=== PATIENT | male | born 1965 | race Caucasian/White ===

== ENCOUNTER 2022-06-13 09:40 | Emergency (ER) | payer BC ==
[~2022-06-13] VITALS: Ht 165.1 cm; Wt 86.4 kg
[2022-06-13 09:49] VITALS: BP 163/97
[2022-06-13] MEDS ORDERED: AMLO10TA55 PO (09:51)
[2022-06-13] MEDS ORDERED: LOSA-382 PO (09:51)
[2022-06-13] MEDS ORDERED: ATOR20TA65 PO (09:51)
[2022-06-13 09:56] LABS: COVID AG,FIA SOURCE NASAL SWAB
[2022-06-13 10:22] LABS: INFLUENZA TYPE A NEGATIVE FOR TYPE A (NEGATIVE); INFLUENZA TYPE B NEGATIVE FOR TYPE B (NEGATIVE)
[2022-06-13 10:24] LABS: RAPID GROUP A STREP NEGATIVE (NEGATIVE)
[2022-06-13] MEDS ORDERED: BENZ-70 PO (11:33)
== END 2022-06-13 11:48 | disposition home or self-care (01) ==
LOC: EMS 09:42
DX: U07.1 COVID-19 (principal); I10 Essential (primary) hypertension
CPT/HCPCS: 87430; 87804; 99283

== ENCOUNTER 2023-04-23 11:39 | Emergency (ER) | payer BC, OTHER ==
[~2023-04-23] VITALS: Ht 165.1 cm; Wt 86.4 kg
[~2023-04-23 11:39] MED LIST: AMLO10TA55 PO; ATOR20TA65 PO; BENZ-227 PO; LOSA-382 PO
[2023-04-23 11:41] VITALS: TEMP 98.4
[2023-04-23 12:16] VITALS: BP 140/94; PULSE 86; RESP 16
[2023-04-24 08:07] LABS: HEPATITIS C AB (EIA) Non Reactive (Non Reactive)
== END 2023-04-23 12:26 | disposition home or self-care (01) ==
LOC: EMS 11:43
DX: S69.91XA Unspecified injury of right wrist, hand and finger(s), initial encounter (principal); I10 Essential (primary) hypertension; W46.1XXA Contact with contaminated hypodermic needle, initial encounter; Y93.89 Activity, other specified; Y92.89 Other specified places as the place of occurrence of the external cause; Y99.8 Other external cause status
CPT/HCPCS: 84460; 86704; 86706; 86803; 87340; 99283

== ENCOUNTER → 2023-09-11 | Outpatient (CLI) | payer OTHER ==
[~2023-09-11] MED LIST changes: -BENZ-227 PO
== END | disposition home or self-care (01) ==
LOC: RADMN 11:14
PROVIDERS: ATTEND Internal Medicine
DX: R05.9 Cough, unspecified (principal)
CPT/HCPCS: 71045

== ENCOUNTER 2024-12-02 16:16 | Emergency (ER) | payer OTHER ==
[~2024-12-02] VITALS: Ht 165.1 cm; Wt 81.8 kg
[2024-12-02 16:20] VITALS: BP 151/70; PULSE 72; RESP 18; TEMP 98.6; O2SAT 97
[2024-12-02] MEDS ORDERED: CLOB15OI21 TP (16:48)
[2024-12-02] MEDS ORDERED: LOSA100T59 PO (16:48)
[2024-12-02] MEDS ORDERED: INDO50CA97 PO (16:48)
[2024-12-02] MEDS: ACETAMINOPHEN 500 MG TABLET PO ONE (16:58)
== END 2024-12-02 17:25 | disposition home or self-care (01) ==
LOC: EMS 16:16
DX: S83.411A Sprain of medial collateral ligament of right knee, initial encounter (principal); M17.11 Unilateral primary osteoarthritis, right knee; E78.00 Pure hypercholesterolemia, unspecified; I10 Essential (primary) hypertension; Z79.899 Other long term (current) drug therapy; X58.XXXA Exposure to other specified factors, initial encounter; Y93.I9 Activity, other involving external motion; Y92.89 Other specified places as the place of occurrence of the external cause; Y99.8 Other external cause status
CPT/HCPCS: 99283